=== PATIENT | male | born 1985 | race Caucasian/White ===

== ENCOUNTER 2016-11-10 05:56 | Emergency (ER) | payer SELFPAY ==
[2016-11-10 07:05] LABS: HEMOGLOBIN 15.3 gm/dl (14.0-17.5); RED BLOOD COUNT 5.16 M/UL (4.20-5.50); WHITE BLOOD COUNT 7.4 K/UL (4.5-11.0)
[2016-11-10 07:26] LABS: BUN/CREATININE RATIO 16 (0-10)
== END 2016-11-10 09:06 | disposition home or self-care (01) ==
LOC: ER1 05:56
PROVIDERS: Physician Assistant
DX: S20.219A Contusion of unspecified front wall of thorax, initial encounter (principal); S00.81XA Abrasion of other part of head, initial encounter; S60.811A Abrasion of right wrist, initial encounter; S30.811A Abrasion of abdominal wall, initial encounter; Z23 Encounter for immunization; V46.5XXA Car driver injured in collision with other nonmotor vehicle in traffic accident, initial encounter; Y93.89 Activity, other specified; Y92.410 Unspecified street and highway as the place of occurrence of the external cause
CPT/HCPCS: 36415; 70450; 71010; 71260; 72125; 73110; 80053; 82150; 83690; 84484; 85025; 90471; 90714; 93005; 99284; J7030; J7050; Q9962